=== PATIENT | male | born 1995 | race Caucasian/White ===

== ENCOUNTER 2019-03-15 14:32 | Inpatient (IN) ==
[2019-03-15] MEDS ORDERED: SODIUM CHLORIDE 0.9% 1000ML 2,000 ML IV SCH (15:30)
[2019-03-15 15:52] LABS: Basophils # (auto) 0.02 K/uL (0-0.2); Basophils % (auto) 0.1 %; Hematocrit (blood only) 46.5 % (42-52); Hemoglobin 16.8 g/dL (14.0-18.0); Immature Granulocytes # (auto) 0.08 K/uL (0.00-0.02); Immature Granulocytes % (auto) 0.4 %; Lymphocytes % (auto) 5.7 %; Mean Corpuscular Hemoglobin 32.8 pg (25-34); Mean Corpuscular Hgb Conc 36.1 g/dL (32-36); Mean Corpuscular Volume 90.8 fL (80-100); Mean Platelet Volume 11.1 fL (7.4-10.4); Monocytes # (auto) 1.04 K/uL (0.11-0.59); Monocytes % (auto) 5.4 %; Neutrophils % (auto) 88.4 %; Platelet Count 208 K/uL (130-400); RDW Coefficient of Variation 12.6 % (11.5-14.5); RDW Standard Deviation 41.8 fL (36.4-46.3); Red Blood Count 5.12 M/uL (4.7-6.1); White Blood Count 19.14 K/uL (4.8-10.8)
[2019-03-15 16:10] LABS: Albumin Level 4.8 gm/dl (3.4-5.0); Calcium 9.2 mg/dl (8.5-10.1); Creatinine Clr Calc Pharmacy 85.1 ml/min; Est GFR (African American) 93.1; Est GFR (Non-African American) 80.3; Magnesium 2.9 mg/dl (1.8-2.4); Potassium 3.2 mmol/L (3.5-5.1)
--- NOTE | 2019-03-15 16:20 | CT Scan Report ---
CT OF THE HEAD WITHOUT CONTRAST CLINICAL HISTORY: Altered mental status. COMPARISON STUDY: No previous studies for comparison. CT DOSE: 1612.45 mGy.cm TECHNIQUE: Helical axial images of the head were obtained without IV contrast. Automated exposure con trol was utilized for the study. A dose lowering technique was utilized adhering to the principles o f ALARA. FINDINGS: No acute intracranial hemorrhage, midline shift or mass effect is present. The ventricular system is unremarkable. The basilar cisterns are patent. No extra-axial collections are present. Ther e are no findings to suggest acute dural sinus thrombosis or acute territorial infarct. No significan t calvarial abnormalities are present. Visualized portions of the sinuses and mastoid air cells are c lear. A right periorbital contusion is suspected. Exam is mildly compromised by motion artifact but i s diagnostic. IMPRESSION: 1. No acute intracranial findings. 2. Right periorbital contusion. No calvarial fracture. Electronically signed by: Grant Baca M.D. 03/15/2019 4:19 PM
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
[2019-03-15 16:28] LABS: Albumin Globulin Ratio 1.2 (0.9-2); Bilirubin,Total 1.1 mg/dl (0.2-1); Globulin 4.1 gm/dl (2.5-4.0); Total Protein 8.9 gm/dl (6.4-8.2)
[2019-03-15 16:30] LABS: Acetaminophen < 2 ug/ml (10-30); Salicylate 5.4 mg/dl (2.8-20)
[2019-03-15 16:58] LABS: Appearance Urine Turbid (Clear); Bacteria Urine Automated Negative (Negative); Bilirubin Urine Negative (Negative); Blood Urine 1+ (Negative); Color Urine Yellow; Epithelial Cell Urine Auto >30 /lpf (0-5); Glucose Urine UA Trace (Negative); Ketones Urine Trace (Negative); Leukocyte Esterase Urine Negative (Negative); Nitrite Urine Negative (Negative); RBC Urine Automated 0-4 /hpf (0-4); Urobilinogen Urine Negative (Negative); pH Urine 7.5 (4.5-7.5)
[2019-03-15 17:10] LABS: Protein Urine Negative (Negative); Sulfosalicylic Acid Urine Negative (Negative)
[2019-03-15 17:19] LABS: Amphetamines+Metham, Urine Neg (Neg); Barbiturates, Urine Neg (Neg); Benzodiazepine, Urine Neg (Neg); Cocaine, Urine Neg (Neg); MDMA (Ecstacy), Urine Neg (Neg); Methadone, Urine Neg (Neg); Opiate, Urine Neg (Neg); Phencyclidine, Urine Neg (Neg)
[2019-03-15] MEDS ORDERED: SODIUM CHLORIDE 0.9% 1000ML 1,000 ML IV STA (17:28)
[2019-03-15] MEDS ORDERED: POTASSIUM CHLORIDE / WTR 10 MEQ/100 ML PLCT IV ONE (17:32)
[2019-03-15] MEDS ORDERED: LORazepam 1 MG/2 ML VIAL IV STA (17:32)
[2019-03-15] MEDS ORDERED: LORazepam 2 MG/4 ML VIAL IV STA (17:50)
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
[2019-03-15] MEDS: NSS + 20MEQ KCL 20 MEQ/1,000 ML BAG IV SCH (20:13)
[2019-03-15] MEDS: LORazepam 0.5 MG/1 ML VIAL IV PRN (22:09)
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
[2019-03-16] MEDS: NSS + 20MEQ KCL 20 MEQ/1,000 ML BAG IV SCH (02:37)
[2019-03-16 06:04] LABS: Basophils # (auto) 0.01 K/uL (0-0.2); Basophils % (auto) 0.1 %; Eosinophils # (auto) 0.03 K/uL (0-0.5); Eosinophils % (auto) 0.4 %; Hematocrit (blood only) 41.6 % (42-52); Hemoglobin 14.6 g/dL (14.0-18.0); Immature Granulocytes # (auto) 0.03 K/uL (0.00-0.02); Immature Granulocytes % (auto) 0.4 %; Lymphocytes # (auto) 1.78 K/uL (1.2-3.4); Lymphocytes % (auto) 21.3 %; Mean Corpuscular Hemoglobin 32.8 pg (25-34); Mean Corpuscular Hgb Conc 35.1 g/dL (32-36); Mean Corpuscular Volume 93.5 fL (80-100); Mean Platelet Volume 11.4 fL (7.4-10.4); Monocytes % (auto) 8.4 %; Neutrophils # (auto) 5.82 K/uL (1.4-6.5); Neutrophils % (auto) 69.4 %; Platelet Count 141 K/uL (130-400); RDW Coefficient of Variation 12.9 % (11.5-14.5); Red Blood Count 4.45 M/uL (4.7-6.1); White Blood Count 8.37 K/uL (4.8-10.8)
[2019-03-16 06:15] LABS: Albumin Level 3.6 gm/dl (3.4-5.0); BUN Creatinine Ratio 10.2 (10-20); Calcium 8.3 mg/dl (8.5-10.1); Creatinine Clr Calc Pharmacy 112.3 ml/min; Est GFR (African American) 131.8; Est GFR (Non-African American) 113.7; Potassium 3.8 mmol/L (3.5-5.1)
[2019-03-16 06:41] LABS: Albumin Globulin Ratio 1.2 (0.9-2); Globulin 2.9 gm/dl (2.5-4.0); Phosphorus 2.5 mg/dl (2.5-4.9); Total Protein 6.5 gm/dl (6.4-8.2)
[2019-03-16] MEDS: LORazepam 0.5 MG/1 ML VIAL IV PRN (06:43)
[2019-03-16] MEDS: LACTATED RINGER'S 1,000 ML IV SCH ×2 (09:49→17:59)
[2019-03-16] MEDS: NICOTINE 21 MG/24 HR TDSY TD SCH (12:03)
[2019-03-16] MEDS: THIAMINE HCL 100 MG TAB PO SCH (12:03)
[2019-03-16] MEDS: FOLIC ACID 1 MG TAB PO SCH (12:03)
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
[2019-03-16] MEDS ORDERED: LORazepam 1 MG TAB PO PRN (14:45)
--- NOTE | 2019-03-16 14:52 | Hospitalist Progress Note ---
Date of Service March 16, 2019 Assessment & Plan (1) Delirium: Altered mental status likely secondary to intentional overdose--suicide attempt Unknown medication use--Patient unable to recollect Toxicology Screen:Positive for Marijuana CT Head: No acute intracranial findings. Right periorbital contusion. No calvarial fracture. 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 Right periorbital contusion. No calvarial fracture. No acute complaints Monitor (6) Suicidal ideation: Admits to have committed suicidal attempt Appreciate Psychiatry Input One on One Observation DVT Px: SCDs for now CODE STATUS Full Disposition Can not leave hospital AMA 302 being planned Needs Inpatient Psychiatry admission when medically stable Subjective Patient is seen and examined at bedside Mental status seems to be back to baseline States not able to remember events from yesterday Admits to trying to commit suicide Denies any chest pain, shortness of breath, dizziness, nausea, abdominal pain Review of Systems Review of Systems: All systems reviewed & are unremarkable except as noted in HPI & below Physical Exam Physical Exam: Physical Exam: Vitals signs as noted above General Appearance:Moderately built and nourished, no apparent distress Head: normocephalic, traumatic--Right eye contusion Eyes: normal inspection, EOMI Neck: supple, Trachea midline Respiratory/Chest: Normal breath sounds, CTA Cardiovascular: S1, S2, No murmur Abdomen/GI:Soft, Non tender, Bowel sounds present Extremities/Musculoskelatal:normal inspection, no edema Neurologic/Psych:AAOX3, grossly no focal neurological deficits Skin: normal color, warm, Multiple abrasions on skin Results & Data Vital Signs (Past 12 Hours) Vital Signs Temp Pulse Resp BP BP Pulse Ox 03/16/19 09:33 36.6 C 90 16 123/73 97 03/16/19 03:34 36.7 C 89 17 116/71 100 Laboratory Results Short CBC 03/15/19 03/16/19 Range/Units 15:37 05:15 WBC 19.14 H 8.37 D (4.8-10.8) K/uL Hgb 16.8 14.6 (14.0-18.0) g/dL Hct 46.5 41.6 L (42-52) % Plt Count 208 141 (130-400) K/uL BMP 03/15/19 03/16/19 15:37 05:15 Sodium 138 143 Potassium 3.2 L 3.8 D Chloride 109 H 117 H Carbon Dioxide 20 L 17 L BUN 10 10 Creatinine 1.24 0.93 D Glucose 75 66 L Calcium 9.2 8.3 L Cardiac Enzymes 03/15/19 03/16/19 Range/Units 15:37 05:15 Total Creatine Kinase 1538 H 8926 H (39-308) U/L Liver Function 03/15/19 03/16/19 Range/Units 15:37 05:15 Total Bilirubin 1.1 H 1.0 (0.2-1) mg/dl AST 60 H 178 H (15-37) U/L ALT 62 72 (12-78) U/L Alkaline Phosphatase 82 63 (45-117) U/L Albumin 4.8 3.6 (3.4-5.0) gm/dl Urine 03/15/19 Range/Units 16:40 Urine Color Yellow Urine Appearance Turbid A (Clear) Urine pH 7.5 (4.5-7.5) Ur Specific [place] 1.020 (1.000-1.030) Urine Protein Negative (Negative) Urine Glucose (UA) Trace H (Negative) (1) Leukocytosis Leukocytosis type: unspecified Qualified Code(s): D72.829 - Elevated white blood cell count, unspecified (2) Rhabdomyolysis Encounter type: initial encounter Rhabdomyolysis type: traumatic Qualified Code(s): T79.6XXA - Traumatic ischemia of muscle, initial encounter (3) Closed head injury Encounter type: initial encounter Qualified Code(s): S09.90XA - Unspecified injury of head, initial encounter
[2019-03-17] MEDS: LACTATED RINGER'S 1,000 ML IV SCH ×3 (00:30→14:08)
[2019-03-17 07:18] LABS: Hematocrit (blood only) 40.5 % (42-52); Hemoglobin 14.5 g/dL (14.0-18.0); Mean Corpuscular Hemoglobin 32.6 pg (25-34); Mean Corpuscular Hgb Conc 35.8 g/dL (32-36); Mean Platelet Volume 11.2 fL (7.4-10.4); Platelet Count 141 K/uL (130-400); RDW Coefficient of Variation 12.4 % (11.5-14.5); RDW Standard Deviation 41.5 fL (36.4-46.3); Red Blood Count 4.45 M/uL (4.7-6.1); White Blood Count 7.08 K/uL (4.8-10.8)
[2019-03-17 07:53] LABS: Albumin Level 3.6 gm/dl (3.4-5.0); BUN Creatinine Ratio 4.1 (10-20); Bilirubin Direct 0.2 mg/dl (0-0.2); Calcium 8.4 mg/dl (8.5-10.1); Creatinine Clr Calc Pharmacy 126.2 ml/min; Est GFR (African American) 142.4; Est GFR (Non-African American) 122.9; Potassium 3.5 mmol/L (3.5-5.1)
[2019-03-17 08:11] LABS: Bilirubin,Total 0.7 mg/dl (0.2-1); Total Protein 6.7 gm/dl (6.4-8.2)
[2019-03-17] MEDS: FOLIC ACID 1 MG TAB PO SCH (08:29)
[2019-03-17] MEDS: THIAMINE HCL 100 MG TAB PO SCH (08:29)
[2019-03-17] MEDS: NICOTINE 21 MG/24 HR TDSY TD SCH (08:29)
[2019-03-17] MEDS ORDERED: NEOMYCIN/POLYMYX/BACITR OINT 15 GM TUBE EXT SCH (11:00)
[2019-03-17 12:20] VITALS: TEMP 98.1; O2SAT 99
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
--- NOTE | 2019-03-17 14:51 | Hospitalist Progress Note ---
Date of Service March 17, 2019 Assessment & Plan (1) Delirium: Altered mental status likely secondary to intentional overdose--suicide attempt Unknown medication use--Patient unable to recollect events prior to admission Toxicology Screen:Positive for Marijuana Admits to using Xanax in the past CT Head: No acute intracranial findings. Right periorbital contusion. No calvarial fracture. Mental status back to baseline Continue one on one observation Appreciate Psychiatry Input Needs inpatient psychiatric admission Patient willing to consider inpatient D&A treatment Alcohol Use disorder: At risk Protocol ordered No signs of withdrawal Continue Thiamine, folic acid Monitor Tobacco use disorder Smokes 2 packs per day Continue Nicotine Patch Counseled to quit Patient willing to quit (2) Multiple contusions: Patient has bruising and multiple contusions Denies pain Continue supportive care (3) Leukocytosis: Likely secondary to a stress No signs of infection Monitor (4) Rhabdomyolysis: Secondary to multiple contusion CK level: 8926>>>4694 Continue intravenous fluid Monitor renal function Hypokalemia Metabolic Acidosis Monitor BMP Replace electrolytes as needed (5) Closed head injury: CT Head: No acute intracranial findings. Right periorbital contusion. No calvarial fracture. No acute complaints Monitor (6) Suicidal ideation: Admits to have committed suicidal attempt Appreciate Psychiatry Input One on One Observation DVT Px: SCDs for now CODE STATUS Full Disposition Can not leave hospital AMA 302 being planned Plan to discharge to Inpatient mental health facility Subjective Patient is seen and examined at bedside States having some soreness at sites of abrasion Denies any muscular pain No signs of alcohol withdrawal Unable to recollect events prior to hospital admission Denies any suicidal thoughts currently Also denies any chest pain, SOB, dizziness, nausea, abdominal pain Review of Systems Review of Systems: All systems reviewed & are unremarkable except as noted in HPI & below Physical Exam Physical Exam: Physical Exam: Vitals signs as noted above General Appearance:Moderately built and nourished, no apparent distress Head: normocephalic, traumatic--Right eye contusion Eyes: normal inspection, EOMI Neck: supple, Trachea midline Respiratory/Chest: Normal breath sounds, CTA Cardiovascular: S1, S2, No murmur Abdomen/GI:Soft, Non tender, Bowel sounds present Extremities/Musculoskelatal:normal inspection, no edema Neurologic/Psych:AAOX3, grossly no focal neurological deficits Skin: normal color, warm, Multiple abrasions on skin Results & Data Vital Signs (Past 12 Hours) Vital Signs Temp Pulse Pulse Resp BP BP Pulse Ox 03/17/19 12:19 36.7 C 70 18 134/82 99 03/17/19 08:00 91 H 03/17/19 06:52 36.8 C 113 H 17 124/82 100 03/17/19 03:10 36.8 C 108 H 17 152/84 H 98 Laboratory Results Short CBC 03/15/19 03/16/19 03/17/19 Range/Units 15:37 05:15 06:51 WBC 7.08 (4.8-10.8) K/uL Hgb 14.5 (14.0-18.0) g/dL Hct 40.5 L (42-52) % Plt Count 141 (130-400) K/uL Carbon Dioxide 20 L 17 L (21-32) mmol/L Total Creatine Kinase 1538 H 8926 H (39-308) U/L 03/17/19 Range/Units 06:51 WBC (4.8-10.8) K/uL Hgb (14.0-18.0) g/dL Hct (42-52) % Plt Count (130-400) K/uL Carbon Dioxide 17 L (21-32) mmol/L Total Creatine Kinase 4697 H (39-308) U/L BMP 03/17/19 06:51 Sodium 141 Potassium 3.5 Chloride 113 H Carbon Dioxide 17 L BUN 3 L D Creatinine 0.82 Glucose 85 Calcium 8.4 L Cardiac Enzymes 03/17/19 Range/Units 06:51 Total Creatine Kinase 4697 H (39-308) U/L Liver Function 03/17/19 Range/Units 06:51 Total Bilirubin 0.7 (0.2-1) mg/dl Direct Bilirubin 0.2 (0-0.2) mg/dl AST 150 H (15-37) U/L ALT 77 (12-78) U/L Alkaline Phosphatase 64 (45-117) U/L Albumin 3.6 (3.4-5.0) gm/dl (1) Leukocytosis Leukocytosis type: unspecified Qualified Code(s): D72.829 - Elevated white blood cell count, unspecified (2) Rhabdomyolysis Encounter type: initial encounter Rhabdomyolysis type: traumatic Qualified Code(s): T79.6XXA - Traumatic ischemia of muscle, initial encounter (3) Closed head injury Encounter type: initial encounter Qualified Code(s): S09.90XA - Unspecified injury of head, initial encounter
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
[2019-03-17 15:02] VITALS: BP 146/93; PULSE 101
== END 2019-03-17 15:43 | DRG 918 ==
LOC: ED 14:32 → SUATTDRO 18:50 → 2S 18:50

== ENCOUNTER 2019-03-17 16:22 | Inpatient (IN) ==
[2019-03-17] MEDS ORDERED: SODIUM CHLORIDE 0.65% NA SOLN 45 ML (OCEAN) PRN (17:45)
[2019-03-17] MEDS ORDERED: ALUMINUM/MAGNESIUM SUSP 30 ML UDC PO PRN (17:45)
[2019-03-17] MEDS ORDERED: BISMUTH SUBSALICYLATE PER ML OMNICELL CHARGE PO PRN (17:45)
[2019-03-17] MEDS ORDERED: MAGNESIUM HYDROXIDE SUSP 30 ML UDC PO PRN (17:45)
[2019-03-18] MEDS: ACETAMINOPHEN 325 MG TAB PO PRN ×2 (06:50→14:16)
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
[2019-03-18] MEDS: VENLAFAXINE HCL XR 37.5 MG CAPXR PO SCH (12:44)
[2019-03-18] MEDS: NICOTINE 21 MG/24 HR TDSY TD SCH (13:05)
[2019-03-19] MEDS ORDERED: IBUPROFEN 200 MG TAB PO PRN (08:29)
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
[2019-03-19] MEDS: NICOTINE 21 MG/24 HR TDSY TD SCH (09:35)
[2019-03-19] MEDS: VENLAFAXINE HCL XR 37.5 MG CAPXR PO SCH (09:35)
[2019-03-20] MEDS ORDERED: LORazepam 1 MG TAB PO PRN ×2 (05:37→05:56)
[2019-03-20] MEDS ORDERED: LORazepam 1 MG TAB PO STA (05:40)
[2019-03-20] MEDS ORDERED: cloNIDine HCL 0.1 MG TAB PO ONE ×2 (06:00→08:39)
[2019-03-20 08:07] VITALS: PULSE 106; TEMP 98.1
[2019-03-20] MEDS ORDERED: VENLAFAXINE HCL XR 75 MG CAPXR PO SCH (09:00)
[2019-03-20] MEDS: NICOTINE 21 MG/24 HR TDSY TD SCH (09:38)
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
[2019-03-20 11:07] VITALS: BP 143/91
== END 2019-03-20 11:20 | disposition left against medical advice (07) | DRG 881 ==
LOC: 3S 17:14